=== PATIENT | female | born 1950 | race Two or more races ===

== ENCOUNTER 2021-08-14 03:08 | Emergency (ER) | payer MEDICARE, OTHER ==
[~2021-08-14] VITALS: Ht 162.6 cm; Wt 81.6 kg
--- NOTE | 2021-08-14 03:10 | NUR ---
DR. TOMLIN AT BEDSIDE, MSE IN PROGRESS.
[2021-08-14] MEDS ORDERED: TINI500T18 PO (03:27)
[2021-08-14] MEDS ORDERED: OXYC-128 PO (03:27)
[2021-08-14] MEDS ORDERED: CLAR-45 PO (03:27)
[2021-08-14] MEDS ORDERED: ONDA4TAB5 PO (03:27)
[2021-08-14] MEDS ORDERED: AMOX500T2 PO (03:27)
[2021-08-14] MEDS ORDERED: RABE20TA18 PO (03:29)
--- NOTE | 2021-08-14 04:07 | NUR ---
Patient discharged to home in stable condition. Written and verbal after care instructions given. Patient verbalizes understanding of instructions. Stressed follow up or return to ER for worsening s/s. Steady gait. Denies any pain/discomfort. No n/v/d.
[2021-08-14 04:18] VITALS: BP 144/79
== END 2021-08-14 04:15 | disposition home or self-care (01) ==
LOC: ER 03:23
DX: R68.2 Dry mouth, unspecified (principal); T36.4X5A Adverse effect of tetracyclines, initial encounter; Y92.89 Other specified places as the place of occurrence of the external cause; K25.9 Gastric ulcer, unspecified as acute or chronic, without hemorrhage or perforation; Z85.038 Personal history of other malignant neoplasm of large intestine; Z88.2 Allergy status to sulfonamides; Z86.39 Personal history of other endocrine, nutritional and metabolic disease; Z91.041 Radiographic dye allergy status
CPT/HCPCS: A4663

== ENCOUNTER 2021-09-01 15:26 | Emergency (ER) | payer MEDICARE, OTHER ==
[~2021-09-01] VITALS: Ht 162.6 cm; Wt 83.5 kg
[~2021-09-01 15:26] MED LIST: AMOX500T2 PO; CLAR-45 PO; ONDA4TAB5 PO; OXYC-128 PO; RABE20TA18 PO; TINI500T18 PO
[2021-09-01 16:22] LABS: HEMATOCRIT 35.4 % (31.2-41.9); MEAN CORPUSCULAR HEMOGLOBIN 28.1 uug (24.7-32.8); MEAN CORPUSCULAR VOLUME 83.6 fL (75.5-95.3); PLATELET COUNT (AUTO) 219 K/uL (179-408)
[2021-09-01 16:27] LABS: CREATININE 0.7 mg/dL (0.6-1.3); POTASSIUM 3.9 mmol/L (3.5-5.1)
[2021-09-01 16:40] LABS: BILIRUBIN,TOTAL 0.3 mg/dL (0.2-1.0); TOTAL PROTEIN, SERUM 7.9 g/dL (6.4-8.2)
--- NOTE | 2021-09-01 16:59 | NUR ---
pt tolerated po challenge.
--- NOTE | 2021-09-01 17:19 | NUR ---
Patient discharged to home in stable condition. Written and verbal after care instructions given. Patient verbalizes understanding of instructions. Stressed follow up or return to ER for worsening s/s.
[2021-09-01 17:20] VITALS: BP 122/70
== END 2021-09-01 17:22 | disposition home or self-care (01) ==
LOC: ER 15:26
DX: R11.0 Nausea (principal); Z20.822 Contact with and (suspected) exposure to COVID-19; E78.5 Hyperlipidemia, unspecified; Z85.038 Personal history of other malignant neoplasm of large intestine; Z86.16 Personal history of COVID-19; E11.9 Type 2 diabetes mellitus without complications; E87.1 Hypo-osmolality and hyponatremia
CPT/HCPCS: 36415; 70030-TC; 71045; 85025; 93005; A4663

== ENCOUNTER 2021-09-03 01:50 | Emergency (ER) | payer MEDICARE, OTHER ==
[~2021-09-03] VITALS: Ht 162.6 cm; Wt 81.6 kg
--- NOTE | 2021-09-03 01:58 | NUR ---
pt walk in to room 4a, c/o htn and numbness.
--- NOTE | 2021-09-03 01:58 | NUR ---
Dr. Hernandez at bedside for MSE.
--- NOTE | 2021-09-03 02:23 | NUR ---
Lab draw and PCXR complete.
[2021-09-03 02:26] LABS: HEMATOCRIT 33.6 % (31.2-41.9); MEAN CORPUSCULAR HEMOGLOBIN 28.7 uug (24.7-32.8); MEAN CORPUSCULAR VOLUME 84.5 fL (75.5-95.3); PLATELET COUNT (AUTO) 196 K/uL (179-408)
[2021-09-03 02:35] LABS: CREATININE 0.7 mg/dL (0.6-1.3); POTASSIUM 3.6 mmol/L (3.5-5.1)
[2021-09-03 02:41] LABS: BILIRUBIN,TOTAL 0.3 mg/dL (0.2-1.0); TOTAL PROTEIN, SERUM 7.7 g/dL (6.4-8.2)
[2021-09-03] MEDS ORDERED: ONDANSETRON ODT 4 MG TAB.RAPDIS SL ONE (04:00)
[2021-09-03] MEDS ORDERED: ONDANSETRON ODT 4 MG TAB.RAPDIS ONE (04:02)
--- NOTE | 2021-09-03 04:15 | NUR ---
Patient discharged to home in stable condition. Written and verbal after care instructions given. Patient verbalizes understanding of instructions. Stressed follow up or return to ER for worsening s/s. pt ambulatory with steady gait, denies pain.
[2021-09-03 04:16] VITALS: BP 140/85
== END 2021-09-03 04:17 | disposition home or self-care (01) ==
LOC: ER 01:52
DX: R11.0 Nausea (principal); R10.13 Epigastric pain; E78.5 Hyperlipidemia, unspecified; I10 Essential (primary) hypertension; E11.9 Type 2 diabetes mellitus without complications; Z88.2 Allergy status to sulfonamides; Z88.1 Allergy status to other antibiotic agents; Z91.041 Radiographic dye allergy status; Z79.899 Other long term (current) drug therapy; E07.9 Disorder of thyroid, unspecified
CPT/HCPCS: 36415; 70030-TC; 71045; 83690; 85025; 93005; A4663; Q0162